=== PATIENT | male | born 1935 | race Caucasian/White ===

== ENCOUNTER 2022-07-20 21:57 | Inpatient (IN) | payer MEDICARE ==
[2022-07-21 00:23] VITALS: BMI 25.7
[2022-07-21] MEDS ORDERED: Acetaminophen 650 MG Suppository PR PRN (00:58)
[2022-07-21] MEDS ORDERED: Ondansetron PF 4 MG/2 ML Vial IVP PRN (00:58)
[2022-07-21] MEDS ORDERED: Ondansetron ODT 4 MG TAB PO PRN (00:58)
[2022-07-21] MEDS ORDERED: Furosemide 40 MG/4 ML VIAL SLOW IVP SCH (01:30)
[2022-07-21 02:09] LABS: Lactic Acid 6.1 mmol/L (0.5-2.2)
[2022-07-21 03:00] LABS: Bacteria/HPF None Seen HPF (None Seen); Bilirubin Negative (Negative); Blood, Urine Negative (Negative); CAUTI Indications for Culture Fever or rigors; Clarity Clear (Clear); Glucose, Urine (Dipstick) 30 mg/dL (Negative); Ketone, Urine Negative (Negative); Leukocyte Negative Leu/uL (Negative); Nitrite Negative (Negative); Protein, Urine (Dipstick) Negative (Neg-Trace); RBC/HPF 0-3 HPF (0-3); Specific Gravity, Urine 1.009 (1.002-1.036); Squamous Epithelial None Seen HPF (0-3); Urobilinogen Normal mg/dL (Less than 2); WBC/HPF None Seen HPF (0-3)
[2022-07-21 03:07] LABS: Urine Culture Reflex No No
[2022-07-21 05:14] LABS: Anion Gap 16 mmol/L (10-20); BUN (Urea Nitrogen) 8 mg/dL (8.4-25.7); Calc. Creatinine Clearance 68 mL/min (70-130); Calcium 8.4 mg/dL (7.8-10.44); Carbon Dioxide 19 mmol/L (23-31); Chloride 103 mmol/L (98-107); Estimated GFR 86; Glucose 202 mg/dL (83-110); Potassium 3.3 mmol/L (3.5-5.1); Sodium 135 mmol/L (136-145)
[2022-07-21 05:38] LABS: #Lymphocytes 0.1 thou/uL (1.20-3.40); #Monocytes 0.1 thou/uL (0.11-0.59); #Neutrophils 1.7 thou/uL (1.40-6.50); %Eosinophils 0.6 % (0.0-10.0); %Lymphocytes 7.3 % (21.0-51.0); %Monocytes 4.6 % (0.0-10.0); %Neutrophils 87.6 % (42.0-75.0); Hemoglobin 8.9 g/dL (14.0-18.0); Mean Corpuscular HGB CONC 33.9 g/dL (32.0-36.0); Mean Corpuscular Hemoglobin 27.4 pg (27.0-31.0); Mean Corpuscular Volume 80.7 fl (78.0-98.0); Mean Platelet Volume 11.9 fL (7.4-10.4); Platelet Count 136 10x3/uL (130-400); RBC Distribution Width 21.3 % (11.5-14.5); Red Blood Cell (RBC) Count 3.25 mill/uL (4.70-6.10); White Blood Cell (WBC) Count 1.9 10x3/uL (4.8-10.8)
[2022-07-21 05:39] LABS: Anisocytosis SLIGHT = 6-15 cells (100X) (0-5/hpf); Hypochromia SLIGHT = 6-15 cells (100X) (0-5/hpf); MDiff Complete? YES
[2022-07-21] MEDS ORDERED: Electrolyte Replacement Protocol 1 EACH FS SCH (06:30)
[2022-07-21 07:02] LABS: Magnesium 1.9 mg/dL (1.6-2.6)
[2022-07-21] MEDS ORDERED: Magnesium 2 GM/50 ML(in water) 2 GM in Premix Bag 1 BAG IVPB SCH (08:00)
[2022-07-21] MEDS: Acetaminophen 325 MG TAB PO PRN ×2 (08:15→20:33)
[2022-07-21] MEDS: Enoxaparin Sodium 40 MG/0.4 ML SYRINGE SC SCH (08:19)
[2022-07-21] MEDS ORDERED: FLU VACC QS2022-23(65YR UP)/PF 240 MCG/0.7 ML SYRINGE IM ONE (09:00)
[2022-07-21] MEDS: Potassium Chloride 20 MEQ in Premix Bag 1 BAG IVPB SCH ×2 (09:26→11:55)
[2022-07-21 10:48] LABS: Iron 20 ug/dL (65-175); Iron Binding Capacity, Total 478 mcg/dL (261-462)
[2022-07-21] MEDS ORDERED: Iopamidol-370 76% 500 ML 1 ML ONE (10:56)
[2022-07-21] MEDS: Polyethylene Glycol 3350 17 GM Packet PO SCH ×2 (18:34→20:09)
[2022-07-21] MEDS: Benzonatate 100 MG CAP PO PRN (20:33)
[2022-07-21 21:18] LABS: Lactic Acid 1.9 mmol/L (0.5-2.2)
[2022-07-22 07:43] LABS: Anion Gap 12 mmol/L (10-20); BUN (Urea Nitrogen) 9 mg/dL (8.4-25.7); Calc. Creatinine Clearance 75 mL/min (70-130); Calcium 8.2 mg/dL (7.8-10.44); Carbon Dioxide 24 mmol/L (23-31); Chloride 99 mmol/L (98-107); Estimated GFR 89; Glucose 104 mg/dL (83-110); Potassium 4.1 mmol/L (3.5-5.1); Sodium 131 mmol/L (136-145)
[2022-07-22 07:52] LABS: Hemoglobin 9.2 g/dL (14.0-18.0); Mean Corpuscular HGB CONC 31.2 g/dL (32.0-36.0); Mean Corpuscular Hemoglobin 25.1 pg (27.0-31.0); Mean Corpuscular Volume 80.6 fl (78.0-98.0); Mean Platelet Volume 7.6 fL (7.4-10.4); Platelet Count 111 10x3/uL (130-400); RBC Distribution Width 22.4 % (11.5-14.5); Red Blood Cell (RBC) Count 3.65 mill/uL (4.70-6.10)
[2022-07-22 08:41] LABS: Anisocytosis SLIGHT = 6-15 cells (100X) (0-5/hpf); Band 37 % (5-11); Hypochromia SLIGHT = 6-15 cells (100X) (0-5/hpf); Lymphocytes 1 % (21-51); MDiff Complete? YES; Monocytes 6 % (0-10); Myelocyte 2 % (0-0); Neutrophil 53 % (42-75); Nucleated RBC 1 % (0); Ovalocytes SLIGHT = 2-5 cells (100X) (0-1/hpf); Platelet Morphology Comment Appears Decreased; Polychromasia MODERATE = 3-4 cells (100X) (0-2/hpf); Reactive Lymphocytes 1 % (0-10); Tear Drops SLIGHT = 2-5 cells (100X) (0-1/hpf)
[2022-07-22] MEDS: Enoxaparin Sodium 40 MG/0.4 ML SYRINGE SC SCH (08:58)
[2022-07-22] MEDS: Acetaminophen 325 MG TAB PO PRN ×2 (09:56→19:20)
[2022-07-22] MEDS ORDERED: GoLYTELY 4,000 ml Bottle PO SCH (18:15)
[2022-07-23] MEDS: Acetaminophen 325 MG TAB PO PRN ×3 (00:06→23:17)
[2022-07-23] MEDS: Enoxaparin Sodium 40 MG/0.4 ML SYRINGE SC SCH (08:36)
[2022-07-23] MEDS: Benzonatate 100 MG CAP PO PRN ×2 (08:42→20:02)
[2022-07-23] MEDS: cefTRIAXone\\ROCEPHIN 1 GM in Sodium Chloride 0.9% 100 ML IVPB SCH (11:31)
[2022-07-23] MEDS: methylPREDNISolone Sod Succ 40 MG VIAL IVP SCH ×3 (11:31→23:11)
[2022-07-23] MEDS: Azithromycin 500 MG in Sodium Chloride 0.9% 250 ML 250 ML IVPB SCH (11:32)
[2022-07-23] MEDS ORDERED: Polyethylene Glycol 3350 17 GM Packet PO PRN (17:09)
[2022-07-23] MEDS: Mometasone 100 MCG/Formoterol 5 MCG 120 PUFF INHALER INH SCH (19:19)
[2022-07-24] MEDS: methylPREDNISolone Sod Succ 40 MG VIAL IVP SCH ×4 (05:11→23:47)
[2022-07-24] MEDS: Mometasone 100 MCG/Formoterol 5 MCG 120 PUFF INHALER INH SCH ×2 (06:55→18:49)
[2022-07-24] MEDS: Enoxaparin Sodium 40 MG/0.4 ML SYRINGE SC SCH (08:31)
[2022-07-24] MEDS: cefTRIAXone\\ROCEPHIN 1 GM in Sodium Chloride 0.9% 100 ML IVPB SCH (12:09)
[2022-07-24] MEDS: Azithromycin 500 MG in Sodium Chloride 0.9% 250 ML 250 ML IVPB SCH (12:10)
[2022-07-24] MEDS: Acetaminophen 325 MG TAB PO PRN ×2 (14:59→21:19)
[2022-07-24] MEDS ORDERED: Pantoprazole 40 MG VIAL IVP SCH (19:15)
[2022-07-24] MEDS ORDERED: GoLYTELY 4,000 ml Bottle PO SCH (19:15)
[2022-07-25] MEDS: methylPREDNISolone Sod Succ 40 MG VIAL IVP SCH ×4 (05:10→23:48)
[2022-07-25] MEDS: Enoxaparin Sodium 40 MG/0.4 ML SYRINGE SC SCH (07:11)
[2022-07-25] MEDS: Mometasone 100 MCG/Formoterol 5 MCG 120 PUFF INHALER INH SCH ×2 (07:17→18:54)
[2022-07-25] MEDS: Pantoprazole 40 MG VIAL IVP SCH (08:32)
[2022-07-25] MEDS ORDERED: PROPOFOL 200 MG/20 ML VIAL ONE (11:09)
[2022-07-25] MEDS ORDERED: Phenylephrine 10 MG/ML VIAL ONE (11:09)
[2022-07-25] MEDS ORDERED: Promethazine HCl 25 MG/ML VIAL IVPB PRN (12:28)
[2022-07-25] MEDS ORDERED: Ondansetron HCl/PF 4 MG/2 ML Vial IVP PRN (12:28)
[2022-07-25] MEDS ORDERED: Promethazine HCl 25 MG/ML VIAL IM PRN (12:28)
[2022-07-25] MEDS: Benzonatate 100 MG CAP PO PRN (13:10)
[2022-07-25] MEDS: cefTRIAXone\\ROCEPHIN 1 GM in Sodium Chloride 0.9% 100 ML IVPB SCH (13:10)
[2022-07-25] MEDS: Azithromycin 500 MG in Sodium Chloride 0.9% 250 ML 250 ML IVPB SCH (13:22)
[2022-07-25] MEDS ORDERED: Metoclopramide HCl 10 MG/2 ML VIAL IVP SCH (14:15)
[2022-07-25] MEDS: guaiFENesin/Codeine 200 mg/20 mg 10 ml Cup PO PRN (14:58)
[2022-07-26] MEDS: guaiFENesin/Codeine 200 mg/20 mg 10 ml Cup PO PRN ×3 (00:41→16:35)
[2022-07-26] MEDS: methylPREDNISolone Sod Succ 40 MG VIAL IVP SCH (06:15)
[2022-07-26] MEDS: Mometasone 100 MCG/Formoterol 5 MCG 120 PUFF INHALER INH SCH ×2 (06:21→18:38)
[2022-07-26 07:04] LABS: Anion Gap 13 mmol/L (10-20); BUN (Urea Nitrogen) 11 mg/dL (8.4-25.7); Calc. Creatinine Clearance 84 mL/min (70-130); Calcium 8.3 mg/dL (7.8-10.44); Carbon Dioxide 28 mmol/L (23-31); Chloride 98 mmol/L (98-107); Estimated GFR 92; Glucose 160 mg/dL (83-110); Potassium 2.8 mmol/L (3.5-5.1); Sodium 136 mmol/L (136-145)
[2022-07-26] MEDS: Enoxaparin Sodium 40 MG/0.4 ML SYRINGE SC SCH (08:40)
[2022-07-26] MEDS: Pantoprazole 40 MG VIAL IVP SCH (08:41)
[2022-07-26 09:22] LABS: Band 38 % (5-11); Hemoglobin 8.4 g/dL (14.0-18.0); Hypochromia SLIGHT = 6-15 cells (100X) (0-5/hpf); Lymphocytes 3 % (21-51); MDiff Complete? YES; Mean Corpuscular HGB CONC 30.6 g/dL (32.0-36.0); Mean Corpuscular Hemoglobin 24.6 pg (27.0-31.0); Mean Corpuscular Volume 80.4 fl (78.0-98.0); Mean Platelet Volume 7.8 fL (7.4-10.4); Metamyelocyte 7 % (0-0); Monocytes 4 % (0-10); Myelocyte 6 % (0-0); Neutrophil 42 % (42-75); Platelet Count 87 10x3/uL (130-400); Platelet Morphology Comment Appears Decreased; Polychromasia SLIGHT = 2-3 cells (100X) (0-2/hpf); RBC Distribution Width 22.4 % (11.5-14.5); Red Blood Cell (RBC) Count 3.39 mill/uL (4.70-6.10); Schistocytes SLIGHT = 2-5 cells (100X) (0-1/hpf); White Blood Cell (WBC) Count 10.5 10x3/uL (4.8-10.8)
[2022-07-26] MEDS: cefTRIAXone\\ROCEPHIN 1 GM in Sodium Chloride 0.9% 100 ML IVPB SCH (11:58)
[2022-07-26 12:10] LABS: Phosphorus 3.2 mg/dL (2.3-4.7)
[2022-07-26] MEDS: Potassium Bicarbonate/Cit Ac 20 MEQ TAB PO SCH ×2 (12:12→16:28)
[2022-07-26] MEDS ORDERED: Magnesium 2 GM/50 ML(in water) 2 GM in Premix Bag 1 BAG IVPB SCH (12:30)
[2022-07-26] MEDS: Cefdinir 300 MG CAP PO SCH (20:05)
[2022-07-26 20:25] LABS: Potassium 3.3 mmol/L (3.5-5.1)
[2022-07-27 07:21] LABS: Hemoglobin 9.2 g/dL (14.0-18.0); Mean Corpuscular HGB CONC 30.9 g/dL (32.0-36.0); Mean Corpuscular Hemoglobin 25.1 pg (27.0-31.0); Mean Corpuscular Volume 81.4 fl (78.0-98.0); Mean Platelet Volume 12.1 fL (7.4-10.4); Platelet Count 81 10x3/uL (130-400); RBC Distribution Width 22.7 % (11.5-14.5); Red Blood Cell (RBC) Count 3.64 mill/uL (4.70-6.10); White Blood Cell (WBC) Count 18.5 10x3/uL (4.8-10.8)
[2022-07-27 07:36] LABS: Anion Gap 11 mmol/L (10-20); BUN (Urea Nitrogen) 10 mg/dL (8.4-25.7); Calc. Creatinine Clearance 87 mL/min (70-130); Calcium 8.4 mg/dL (7.8-10.44); Carbon Dioxide 28 mmol/L (23-31); Chloride 97 mmol/L (98-107); Estimated GFR 93; Glucose 84 mg/dL (83-110); Potassium 3.2 mmol/L (3.5-5.1); Sodium 133 mmol/L (136-145)
[2022-07-27] MEDS: Mometasone 100 MCG/Formoterol 5 MCG 120 PUFF INHALER INH SCH ×2 (08:35→18:57)
[2022-07-27 09:15] LABS: Anisocytosis SLIGHT = 6-15 cells (100X) (0-5/hpf); Band 10 % (5-11); Hypochromia SLIGHT = 6-15 cells (100X) (0-5/hpf); Lymphocytes 2 % (21-51); MDiff Complete? YES; Metamyelocyte 13 % (0-0); Monocytes 2 % (0-10); Myelocyte 6 % (0-0); Neutrophil 67 % (42-75); Platelet Morphology Comment Appears Decreased; Polychromasia SLIGHT = 2-3 cells (100X) (0-2/hpf)
[2022-07-27] MEDS: Enoxaparin Sodium 40 MG/0.4 ML SYRINGE SC SCH (09:25)
[2022-07-27] MEDS: guaiFENesin/Codeine 200 mg/20 mg 10 ml Cup PO PRN ×2 (09:25→19:49)
[2022-07-27] MEDS: predniSONE 5 MG TAB PO SCH (09:25)
[2022-07-27] MEDS: Cefdinir 300 MG CAP PO SCH ×2 (09:25→19:49)
[2022-07-27] MEDS: Pantoprazole 40 MG VIAL IVP SCH (09:25)
[2022-07-27] MEDS ORDERED: Potassium Bicarbonate/Cit Ac 20 MEQ TAB PO SCH (13:00)
[2022-07-28] MEDS: Mometasone 100 MCG/Formoterol 5 MCG 120 PUFF INHALER INH SCH ×2 (07:09→19:25)
[2022-07-28 07:11] LABS: Anion Gap 11 mmol/L (10-20); BUN (Urea Nitrogen) 10 mg/dL (8.4-25.7); Calc. Creatinine Clearance 84 mL/min (70-130); Calcium 8.4 mg/dL (7.8-10.44); Carbon Dioxide 27 mmol/L (23-31); Chloride 97 mmol/L (98-107); Estimated GFR 92; Glucose 85 mg/dL (83-110); Potassium 3.8 mmol/L (3.5-5.1); Sodium 131 mmol/L (136-145)
[2022-07-28] MEDS: Enoxaparin Sodium 40 MG/0.4 ML SYRINGE SC SCH (09:35)
[2022-07-28] MEDS: predniSONE 5 MG TAB PO SCH (09:35)
[2022-07-28] MEDS: Cefdinir 300 MG CAP PO SCH ×2 (09:35→20:14)
[2022-07-28] MEDS: Benzonatate 100 MG CAP PO PRN (22:14)
[2022-07-28] MEDS: Acetaminophen 325 MG TAB PO PRN (22:14)
[2022-07-29] MEDS: Mometasone 100 MCG/Formoterol 5 MCG 120 PUFF INHALER INH SCH (06:44)
[2022-07-29 07:49] VITALS: BP 102/67; TEMP 97.9
[2022-07-29] MEDS: Cefdinir 300 MG CAP PO SCH (08:58)
[2022-07-29] MEDS: Enoxaparin Sodium 40 MG/0.4 ML SYRINGE SC SCH (08:58)
[2022-07-29] MEDS: predniSONE 5 MG TAB PO SCH (08:58)
== END 2022-07-29 14:45 | disposition home health service (06) | DRG 378 ==
LOC: T4-A 07-21 00:14
PROVIDERS: ADMIT Student in an Organized Health Care Education/Training Program; ATTEND Internal Medicine
PROC: 0W3P8ZZ Control Bleeding in Gastrointestinal Tract, Via Natural or Artificial Opening Endoscopic (ICD-10-PCS; principal; 2022-07-25)
PROC: 0DB68ZX Excision of Stomach, Via Natural or Artificial Opening Endoscopic, Diagnostic (ICD-10-PCS; 2022-07-25)
PROC: 0DBA8ZX Excision of Jejunum, Via Natural or Artificial Opening Endoscopic, Diagnostic (ICD-10-PCS; 2022-07-25)
PROC: 0DBK8ZX Excision of Ascending Colon, Via Natural or Artificial Opening Endoscopic, Diagnostic (ICD-10-PCS; 2022-07-25)
PROC: 0D5K8ZZ Destruction of Ascending Colon, Via Natural or Artificial Opening Endoscopic (ICD-10-PCS; 2022-07-25)
PROC: 0DBP8ZX Excision of Rectum, Via Natural or Artificial Opening Endoscopic, Diagnostic (ICD-10-PCS; 2022-07-25)
DX: K28.4 Chronic or unspecified gastrojejunal ulcer with hemorrhage (principal); D61.818 Other pancytopenia; E87.20 Acidosis, unspecified; N13.2 Hydronephrosis with renal and ureteral calculous obstruction; J44.1 Chronic obstructive pulmonary disease with (acute) exacerbation; D62 Acute posthemorrhagic anemia; Q43.8 Other specified congenital malformations of intestine; D50.9 Iron deficiency anemia, unspecified; D12.7 Benign neoplasm of rectosigmoid junction; D12.2 Benign neoplasm of ascending colon; K59.00 Constipation, unspecified; Z98.84 Bariatric surgery status; K57.30 Diverticulosis of large intestine without perforation or abscess without bleeding; K64.4 Residual hemorrhoidal skin tags; K64.8 Other hemorrhoids; R19.5 Other fecal abnormalities; E87.6 Hypokalemia; R33.9 Retention of urine, unspecified; Z87.891 Personal history of nicotine dependence
CPT/HCPCS: 36415; 71045; 74177; 80048; 81001; 82728; 83540; 83550; 83605; 83735; 84100; 85025; 87040; 87811; 88305; 93306; 94640; C1776; C9113; J0456; J0696; J1650; J1940; J2370; J2704; J2765; J2920; J3475; J3480; J3490; J7050; J7512; J7620; Q9967; U0003; U0005

== ENCOUNTER 2022-07-31 13:33 | Inpatient (IN) | payer MEDICARE ==
[2022-07-31] MEDS ORDERED: Guaifenesin DM 100-10/5 ML UDCUP PO PRN (18:03)
[2022-07-31 18:24] VITALS: BMI 18.3
[2022-07-31] MEDS: Sodium Chloride 0.9% 1,000 ML IV SCH (18:24)
[2022-07-31] MEDS: Mometasone 100 MCG/Formoterol 5 MCG 120 PUFF INHALER INH SCH (19:31)
[2022-07-31] MEDS: Melatonin 3 MG TAB PO PRN (20:32)
[2022-07-31] MEDS: Acetaminophen 325 MG TAB PO PRN (20:33)
[2022-08-01] MEDS: Sodium Chloride 0.9% 1,000 ML IV SCH ×3 (04:23→23:45)
[2022-08-01 06:39] LABS: Anion Gap 10 mmol/L (10-20); BUN (Urea Nitrogen) 7 mg/dL (8.4-25.7); Calc. Creatinine Clearance 60 mL/min (70-130); Calcium 7.7 mg/dL (7.8-10.44); Carbon Dioxide 21 mmol/L (23-31); Chloride 106 mmol/L (98-107); Estimated GFR 92; Glucose 111 mg/dL (83-110); Potassium 3.7 mmol/L (3.5-5.1); Sodium 133 mmol/L (136-145)
[2022-08-01 06:41] LABS: Anisocytosis MODERATE=16-30 cells (100X) (0-5/hpf); Band 6 % (5-11); Eosinophils 1 % (0-10); Hemoglobin 8.5 g/dL (14.0-18.0); Hypochromia SLIGHT = 6-15 cells (100X) (0-5/hpf); Lymphocytes 20 % (21-51); MDiff Complete? YES; Mean Corpuscular HGB CONC 30.7 g/dL (32.0-36.0); Mean Corpuscular Hemoglobin 25.4 pg (27.0-31.0); Mean Corpuscular Volume 82.6 fl (78.0-98.0); Mean Platelet Volume 9.5 fL (7.4-10.4); Metamyelocyte 4 % (0-0); Monocytes 12 % (0-10); Myelocyte 2 % (0-0); Neutrophil 55 % (42-75); Platelet Count 118 10x3/uL (130-400); Platelet Morphology Comment Appears Decreased; Polychromasia SLIGHT = 2-3 cells (100X) (0-2/hpf); Red Blood Cell (RBC) Count 3.34 mill/uL (4.70-6.10); Target Cells SLIGHT = 2-5 cells (100X) (0-1/hpf); Tear Drops SLIGHT = 2-5 cells (100X) (0-1/hpf)
[2022-08-01] MEDS: Mometasone 100 MCG/Formoterol 5 MCG 120 PUFF INHALER INH SCH ×2 (07:41→19:02)
[2022-08-01] MEDS: Folic Acid 1 MG TAB PO SCH (08:41)
[2022-08-01] MEDS: Ferrous Sulfate 325 MG TAB PO SCH (08:41)
[2022-08-01] MEDS: Multivit, Therapeutic 1 TAB PO SCH (08:41)
[2022-08-01] MEDS: Polyethylene Glycol 3350 17 GM Packet PO SCH (08:42)
[2022-08-01] MEDS ORDERED: Enoxaparin Sodium 40 MG/0.4 ML SYRINGE SC SCH (09:00)
[2022-08-01] MEDS ORDERED: FLU VACC QS2022-23(65YR UP)/PF 240 MCG/0.7 ML SYRINGE IM ONE (09:00)
[2022-08-01] MEDS: Acetaminophen 325 MG TAB PO PRN (16:26)
[2022-08-02] MEDS ORDERED: Mag-Al 1200 mg/1200 mg/30 ML UDCUP PO SCH (03:00)
[2022-08-02] MEDS: Mometasone 100 MCG/Formoterol 5 MCG 120 PUFF INHALER INH SCH ×2 (07:05→18:52)
[2022-08-02] MEDS: Folic Acid 1 MG TAB PO SCH (08:46)
[2022-08-02] MEDS: Enoxaparin Sodium 30 MG/0.3 ML SYRINGE SC SCH (08:46)
[2022-08-02] MEDS: Ferrous Sulfate 325 MG TAB PO SCH (08:46)
[2022-08-02] MEDS: Multivit, Therapeutic 1 TAB PO SCH (08:47)
[2022-08-02] MEDS: Polyethylene Glycol 3350 17 GM Packet PO SCH (08:47)
[2022-08-02] MEDS: Sodium Chloride 0.9% 1,000 ML IV SCH ×2 (08:48→20:02)
[2022-08-02] MEDS: Acetaminophen 325 MG TAB PO PRN (10:23)
[2022-08-02] MEDS ORDERED: Polyethylene Glycol 3350 17 GM Packet PO PRN (15:26)
[2022-08-03] MEDS: Sodium Chloride 0.9% 1,000 ML IV SCH (05:13)
[2022-08-03] MEDS: Mometasone 100 MCG/Formoterol 5 MCG 120 PUFF INHALER INH SCH ×2 (06:46→18:44)
[2022-08-03] MEDS: Ferrous Sulfate 325 MG TAB PO SCH (08:20)
[2022-08-03] MEDS: Multivit, Therapeutic 1 TAB PO SCH (08:20)
[2022-08-03] MEDS: Polyethylene Glycol 3350 17 GM Packet PO SCH (08:20)
[2022-08-03] MEDS: Enoxaparin Sodium 30 MG/0.3 ML SYRINGE SC SCH (08:21)
[2022-08-03] MEDS: Folic Acid 1 MG TAB PO SCH (08:21)
[2022-08-03] MEDS: Ondansetron PF 4 MG/2 ML Vial IVP PRN (22:56)
[2022-08-04] MEDS: Acetaminophen 325 MG TAB PO PRN ×2 (04:59→15:01)
[2022-08-04] MEDS: Mometasone 100 MCG/Formoterol 5 MCG 120 PUFF INHALER INH SCH ×2 (06:53→18:21)
[2022-08-04] MEDS: Ferrous Sulfate 325 MG TAB PO SCH (08:06)
[2022-08-04] MEDS: Polyethylene Glycol 3350 17 GM Packet PO SCH (08:06)
[2022-08-04] MEDS: Enoxaparin Sodium 30 MG/0.3 ML SYRINGE SC SCH (08:06)
[2022-08-04] MEDS: Multivit, Therapeutic 1 TAB PO SCH (08:06)
[2022-08-04] MEDS: Folic Acid 1 MG TAB PO SCH (08:07)
[2022-08-05] MEDS: Ondansetron PF 4 MG/2 ML Vial IVP PRN ×2 (05:12→18:42)
[2022-08-05] MEDS: Acetaminophen 325 MG TAB PO PRN ×2 (05:21→18:41)
[2022-08-05] MEDS: Mometasone 100 MCG/Formoterol 5 MCG 120 PUFF INHALER INH SCH ×2 (07:54→19:52)
[2022-08-05] MEDS: Enoxaparin Sodium 30 MG/0.3 ML SYRINGE SC SCH (08:37)
[2022-08-05] MEDS: Ferrous Sulfate 325 MG TAB PO SCH (08:37)
[2022-08-05] MEDS: Multivit, Therapeutic 1 TAB PO SCH (08:37)
[2022-08-05] MEDS: Polyethylene Glycol 3350 17 GM Packet PO SCH (08:37)
[2022-08-05] MEDS: Folic Acid 1 MG TAB PO SCH (08:37)
[2022-08-05 09:27] LABS: ALT (SGPT) 13 U/L (8-55); AST (SGOT) 18 U/L (5-34); Albumin 3.2 g/dL (3.4-4.8); Alkaline Phosphatase 77 U/L (40-110); Anion Gap 12 mmol/L (10-20); BUN (Urea Nitrogen) 6 mg/dL (8.4-25.7); Bilirubin, Total 0.8 mg/dL (0.2-1.2); Calc. Creatinine Clearance 61 mL/min (70-130); Calcium 8.3 mg/dL (7.8-10.44); Carbon Dioxide 22 mmol/L (23-31); Chloride 98 mmol/L (98-107); Estimated GFR 92; Globulin 2.6 g/dL (2.4-3.5); Glucose 118 mg/dL (83-110); Magnesium 1.9 mg/dL (1.6-2.6); Phosphorus 3.6 mg/dL (2.3-4.7); Potassium 3.8 mmol/L (3.5-5.1); Protein, Total 5.8 g/dL (5.8-8.1); Sodium 128 mmol/L (136-145)
[2022-08-05 09:36] LABS: Hemoglobin 9.1 g/dL (14.0-18.0); Mean Corpuscular HGB CONC 30.5 g/dL (32.0-36.0); Mean Corpuscular Hemoglobin 25.2 pg (27.0-31.0); Mean Corpuscular Volume 82.7 fl (78.0-98.0); Mean Platelet Volume 11.5 fL (7.4-10.4); Platelet Count 243 10x3/uL (130-400); RBC Distribution Width 25.8 % (11.5-14.5); Red Blood Cell (RBC) Count 3.59 mill/uL (4.70-6.10); White Blood Cell (WBC) Count 9.6 10x3/uL (4.8-10.8)
[2022-08-05 11:10] LABS: Anisocytosis MODERATE=16-30 cells (100X) (0-5/hpf); Band 19 % (5-11); Burr Cells SLIGHT = 2-5 cells (100X) (0-1/hpf); Eosinophils 2 % (0-10); Hypochromia SLIGHT = 6-15 cells (100X) (0-5/hpf); Lymphocytes 5 % (21-51); MDiff Complete? YES; Metamyelocyte 3 % (0-0); Monocytes 6 % (0-10); Myelocyte 6 % (0-0); Neutrophil 58 % (42-75); Polychromasia SLIGHT = 2-3 cells (100X) (0-2/hpf); Reactive Lymphocytes 1 % (0-10); Schistocytes SLIGHT = 2-5 cells (100X) (0-1/hpf)
[2022-08-05] MEDS ORDERED: Senokot S 8.6-50 MG TAB PO PRN (17:05)
[2022-08-05] MEDS: Melatonin 3 MG TAB PO PRN (20:11)
[2022-08-05] MEDS ORDERED: HYDROcodone/Acetaminophen 5/325 mg Tablet PO SCH (22:00)
[2022-08-06] MEDS: Mometasone 100 MCG/Formoterol 5 MCG 120 PUFF INHALER INH SCH ×2 (07:34→18:54)
[2022-08-06 07:45] LABS: Anion Gap 12 mmol/L (10-20); BUN (Urea Nitrogen) 7 mg/dL (8.4-25.7); Calc. Creatinine Clearance 63 mL/min (70-130); Calcium 8.2 mg/dL (7.8-10.44); Carbon Dioxide 22 mmol/L (23-31); Chloride 100 mmol/L (98-107); Estimated GFR 93; Glucose 100 mg/dL (83-110); Potassium 3.6 mmol/L (3.5-5.1); Sodium 130 mmol/L (136-145)
[2022-08-06] MEDS: Polyethylene Glycol 3350 17 GM Packet PO SCH (08:37)
[2022-08-06] MEDS: Ferrous Sulfate 325 MG TAB PO SCH (08:37)
[2022-08-06] MEDS: Multivit, Therapeutic 1 TAB PO SCH (08:37)
[2022-08-06] MEDS: Enoxaparin Sodium 30 MG/0.3 ML SYRINGE SC SCH (08:37)
[2022-08-06] MEDS: Folic Acid 1 MG TAB PO SCH (08:37)
[2022-08-06 10:00] LABS: Anisocytosis MODERATE=16-30 cells (100X) (0-5/hpf); Band 27 % (5-11); Hemoglobin 8.7 g/dL (14.0-18.0); Hypochromia MODERATE=16-30 cells (100X) (0-5/hpf); Lymphocytes 8 % (21-51); MDiff Complete? YES; Mean Corpuscular HGB CONC 31.1 g/dL (32.0-36.0); Mean Corpuscular Hemoglobin 25.4 pg (27.0-31.0); Mean Corpuscular Volume 81.7 fl (78.0-98.0); Mean Platelet Volume 11.1 fL (7.4-10.4); Monocytes 3 % (0-10); Myelocyte 4 % (0-0); Neutrophil 57 % (42-75); Platelet Count 279 10x3/uL (130-400); Platelet Morphology Comment Appears Adequate; Polychromasia SLIGHT = 2-3 cells (100X) (0-2/hpf); RBC Distribution Width 26.1 % (11.5-14.5); Reactive Lymphocytes 1 % (0-10); Red Blood Cell (RBC) Count 3.41 mill/uL (4.70-6.10); White Blood Cell (WBC) Count 9.2 10x3/uL (4.8-10.8)
[2022-08-06] MEDS ORDERED: Iopamidol-370 76% 500 ML 1 ML ONE (16:09)
[2022-08-06] MEDS: Acetaminophen 325 MG TAB PO PRN (20:31)
[2022-08-07 07:47] LABS: Anion Gap 16 mmol/L (10-20); BUN (Urea Nitrogen) 11 mg/dL (8.4-25.7); Calc. Creatinine Clearance 62 mL/min (70-130); Calcium 8.5 mg/dL (7.8-10.44); Carbon Dioxide 20 mmol/L (23-31); Chloride 101 mmol/L (98-107); Estimated GFR 93; Glucose 67 mg/dL (83-110); Potassium 3.7 mmol/L (3.5-5.1); Sodium 133 mmol/L (136-145)
[2022-08-07] MEDS: Mometasone 100 MCG/Formoterol 5 MCG 120 PUFF INHALER INH SCH ×2 (08:07→18:26)
[2022-08-07] MEDS: Folic Acid 1 MG TAB PO SCH (08:31)
[2022-08-07] MEDS: Enoxaparin Sodium 30 MG/0.3 ML SYRINGE SC SCH (08:31)
[2022-08-07] MEDS: Multivit, Therapeutic 1 TAB PO SCH (08:31)
[2022-08-07] MEDS: Ferrous Sulfate 325 MG TAB PO SCH (08:31)
[2022-08-07] MEDS: Polyethylene Glycol 3350 17 GM Packet PO SCH (08:32)
[2022-08-07] MEDS: Acetaminophen 325 MG TAB PO PRN ×3 (11:12→23:15)
[2022-08-07] MEDS: Melatonin 3 MG TAB PO PRN (20:46)
[2022-08-08] MEDS: Acetaminophen 325 MG TAB PO PRN ×2 (06:22→13:55)
[2022-08-08] MEDS: Mometasone 100 MCG/Formoterol 5 MCG 120 PUFF INHALER INH SCH ×2 (06:49→18:33)
[2022-08-08 07:58] LABS: Anion Gap 18 mmol/L (10-20); BUN (Urea Nitrogen) 9 mg/dL (8.4-25.7); Calc. Creatinine Clearance 62 mL/min (70-130); Calcium 8.1 mg/dL (7.8-10.44); Carbon Dioxide 17 mmol/L (23-31); Chloride 101 mmol/L (98-107); Estimated GFR 93; Potassium 3.8 mmol/L (3.5-5.1); Sodium 132 mmol/L (136-145)
[2022-08-08 08:02] LABS: Glucose 58 mg/dL (83-110)
[2022-08-08] MEDS: Enoxaparin Sodium 30 MG/0.3 ML SYRINGE SC SCH (08:14)
[2022-08-08] MEDS: Folic Acid 1 MG TAB PO SCH (08:14)
[2022-08-08] MEDS: Ferrous Sulfate 325 MG TAB PO SCH (08:14)
[2022-08-08] MEDS: Multivit, Therapeutic 1 TAB PO SCH (08:14)
[2022-08-08] MEDS: Polyethylene Glycol 3350 17 GM Packet PO SCH (08:15)
[2022-08-08] MEDS ORDERED: Mag-Al 1200 mg/1200 mg/30 ML UDCUP PO SCH (18:15)
[2022-08-08] MEDS: Megestrol Acetate 40 MG TAB PO SCH (20:29)
[2022-08-09] MEDS: Acetaminophen 325 MG TAB PO PRN (00:05)
[2022-08-09] MEDS: Melatonin 3 MG TAB PO PRN (00:05)
[2022-08-09] MEDS: Mometasone 100 MCG/Formoterol 5 MCG 120 PUFF INHALER INH SCH (06:46)
[2022-08-09 08:55] LABS: Hemoglobin 9.2 g/dL (14.0-18.0); Mean Corpuscular HGB CONC 32.8 g/dL (32.0-36.0); Mean Corpuscular Hemoglobin 26.2 pg (27.0-31.0); Mean Corpuscular Volume 79.9 fl (78.0-98.0); Mean Platelet Volume 11.5 fL (7.4-10.4); Platelet Count 289 10x3/uL (130-400); RBC Distribution Width 25.5 % (11.5-14.5); Red Blood Cell (RBC) Count 3.51 mill/uL (4.70-6.10); White Blood Cell (WBC) Count 9.1 10x3/uL (4.8-10.8)
[2022-08-09 09:11] VITALS: BP 91/58; TEMP 98.1
[2022-08-09 09:14] LABS: Anion Gap 12 mmol/L (10-20); BUN (Urea Nitrogen) 9 mg/dL (8.4-25.7); Calc. Creatinine Clearance 64 mL/min (70-130); Calcium 8.3 mg/dL (7.8-10.44); Carbon Dioxide 20 mmol/L (23-31); Chloride 102 mmol/L (98-107); Estimated GFR 94; Glucose 98 mg/dL (83-110); Potassium 3.4 mmol/L (3.5-5.1); Sodium 131 mmol/L (136-145)
[2022-08-09] MEDS: Folic Acid 1 MG TAB PO SCH (09:18)
[2022-08-09] MEDS: Ferrous Sulfate 325 MG TAB PO SCH (09:18)
[2022-08-09 09:19] LABS: Band 32 % (5-11); Hypochromia SLIGHT = 6-15 cells (100X) (0-5/hpf); Lymphocytes 7 % (21-51); MDiff Complete? YES; Metamyelocyte 1 % (0-0); Microcytosis SLIGHT = 6-15 cells (100X) (0-5/hpf); Monocytes 1 % (0-10); Myelocyte 4 % (0-0); Neutrophil 55 % (42-75); Platelet Morphology Comment Appears Adequate; Polychromasia SLIGHT = 2-3 cells (100X) (0-2/hpf); Schistocytes SLIGHT = 2-5 cells (100X) (0-1/hpf)
[2022-08-09] MEDS: Enoxaparin Sodium 30 MG/0.3 ML SYRINGE SC SCH (09:19)
[2022-08-09] MEDS: Polyethylene Glycol 3350 17 GM Packet PO SCH (09:19)
[2022-08-09] MEDS: Megestrol Acetate 40 MG TAB PO SCH (09:19)
[2022-08-09] MEDS: Multivit, Therapeutic 1 TAB PO SCH (09:19)
== END 2022-08-09 15:15 | disposition home or self-care (01) | DRG 948 ==
LOC: T4-B 17:11 → OBSVTOIN 08-02 15:20
PROVIDERS: ADMIT Internal Medicine; ATTEND Internal Medicine
DX: R53.81 Other malaise (principal); Z68.1 Body mass index [BMI] 19.9 or less, adult; E87.1 Hypo-osmolality and hyponatremia; R33.9 Retention of urine, unspecified; J44.9 Chronic obstructive pulmonary disease, unspecified; F03.90 Unspecified dementia, unspecified severity, without behavioral disturbance, psychotic disturbance, mood disturbance, and anxiety; R62.7 Adult failure to thrive; R11.0 Nausea; I95.9 Hypotension, unspecified; R10.9 Unspecified abdominal pain; Z98.84 Bariatric surgery status; Z79.899 Other long term (current) drug therapy
CPT/HCPCS: 36415; 36416; 74019; 74177; 80048; 80053; 82533; 83735; 84100; 84443; 85025; 94640; 96360; 96361; 96372; G0378; J1650; J2405; J7050; J7620; Q9967; S0179

== ENCOUNTER 2022-08-12 12:44 | Inpatient (IN) | payer MEDICARE ==
[2022-08-12] MEDS ORDERED: Iopamidol-370 76% 500 ML 1 ML ONE (13:09)
[2022-08-12 13:29] LABS: Bilirubin Negative (Negative); Blood, Urine 1+ (Negative); Calcium Oxalate Crystals Rare HPF (None Seen); Clarity Turbid (Clear); Glucose, Urine (Dipstick) Normal (Negative); Ketone, Urine 10 mg/dL (Negative); Leukocyte 500 Leu/uL (Negative); Nitrite Negative (Negative); Protein, Urine (Dipstick) 70 mg/dL (Neg-Trace); Specific Gravity, Urine 1.025 (1.002-1.036); Squamous Epithelial None Seen HPF (0-3); Urobilinogen Normal mg/dL (Less than 2); pH, Urine 5.5 (5.0-9.0)
[2022-08-12 13:37] LABS: Bacteria/HPF 2+ HPF (None Seen); WBC/HPF 21-50 HPF (0-3); Yeast-Budding Rare HPF (None Seen); Yeast-Hyphae 1+ HPF (None Seen)
[2022-08-12 13:44] LABS: Hemoglobin 8.8 g/dL (14.0-18.0); Mean Corpuscular HGB CONC 31.4 g/dL (32.0-36.0); Mean Corpuscular Hemoglobin 25.8 pg (27.0-31.0); Mean Corpuscular Volume 82.3 fl (78.0-98.0); Mean Platelet Volume 11.1 fL (7.4-10.4); Platelet Count 241 10x3/uL (130-400); RBC Distribution Width 25.8 % (11.5-14.5); Red Blood Cell (RBC) Count 3.41 mill/uL (4.70-6.10); White Blood Cell (WBC) Count 7.2 10x3/uL (4.8-10.8)
[2022-08-12 14:01] LABS: SARS-CoV-2 NAA Rapid Test Not Detected (NotDetected)
[2022-08-12 14:05] LABS: Anisocytosis MODERATE=16-30 cells (100X) (0-5/hpf); Band 20 % (5-11); Eosinophils 2 % (0-10); Hypochromia SLIGHT = 6-15 cells (100X) (0-5/hpf); Large Platelets SLIGHT; Lymphocytes 6 % (21-51); MDiff Complete? YES; Metamyelocyte 1 % (0-0); Monocytes 2 % (0-10); Myelocyte 4 % (0-0); Neutrophil 65 % (42-75); Ovalocytes SLIGHT = 2-5 cells (100X) (0-1/hpf); Platelet Morphology Comment Appears Adequate; Polychromasia SLIGHT = 2-3 cells (100X) (0-2/hpf); Schistocytes SLIGHT = 2-5 cells (100X) (0-1/hpf); Target Cells SLIGHT = 2-5 cells (100X) (0-1/hpf)
[2022-08-12 14:08] LABS: ALT (SGPT) 17 U/L (8-55); AST (SGOT) 20 U/L (5-34); Albumin 3.3 g/dL (3.4-4.8); Alkaline Phosphatase 94 U/L (40-110); Anion Gap 13 mmol/L (10-20); BUN (Urea Nitrogen) 9 mg/dL (8.4-25.7); Bilirubin, Total 0.7 mg/dL (0.2-1.2); Calc. Creatinine Clearance 0 mL/min (70-130); Carbon Dioxide 19 mmol/L (23-31); Chloride 104 mmol/L (98-107); Estimated GFR 92; Globulin 1.9 g/dL (2.4-3.5); Glucose 85 mg/dL (83-110); Lipase 46 U/L (8-78); Potassium 3.1 mmol/L (3.5-5.1); Protein, Total 5.2 g/dL (5.8-8.1); Sodium 133 mmol/L (136-145)
[2022-08-12] MEDS ORDERED: cefTRIAXone\\ROCEPHIN 1 GM VIAL ONE (14:30)
[2022-08-12] MEDS ORDERED: Fluconazole 100 MG TAB PO SCH (14:45)
[2022-08-12] MEDS ORDERED: Ondansetron ODT 4 MG TAB PO PRN (18:10)
[2022-08-12] MEDS: Sodium Chloride 0.9% 1,000 ML IV SCH (18:48)
[2022-08-12] MEDS: Acetaminophen 325 MG TAB PO PRN (20:38)
[2022-08-12] MEDS ORDERED: Famotidine 20 MG TAB PO SCH (22:30)
[2022-08-12] MEDS: Ondansetron PF 4 MG/2 ML Vial IVP PRN (22:53)
[2022-08-12 23:02] VITALS: BMI 17.9
[2022-08-13 06:06] LABS: Hemoglobin 8.3 g/dL (14.0-18.0); Mean Corpuscular HGB CONC 32.2 g/dL (32.0-36.0); Mean Corpuscular Hemoglobin 26.4 pg (27.0-31.0); Mean Corpuscular Volume 81.9 fl (78.0-98.0); Mean Platelet Volume 12.2 fL (7.4-10.4); Platelet Count 211 10x3/uL (130-400); RBC Distribution Width 25.6 % (11.5-14.5); Red Blood Cell (RBC) Count 3.15 mill/uL (4.70-6.10); White Blood Cell (WBC) Count 4.7 10x3/uL (4.8-10.8)
[2022-08-13 06:23] LABS: Anion Gap 11 mmol/L (10-20); BUN (Urea Nitrogen) 7 mg/dL (8.4-25.7); Calc. Creatinine Clearance 59 mL/min (70-130); Calcium 7.6 mg/dL (7.8-10.44); Carbon Dioxide 21 mmol/L (23-31); Chloride 106 mmol/L (98-107); Estimated GFR 92; Glucose 81 mg/dL (83-110); Potassium 2.8 mmol/L (3.5-5.1); Sodium 135 mmol/L (136-145)
[2022-08-13 08:07] LABS: Anisocytosis MODERATE=16-30 cells (100X) (0-5/hpf); Band 34 % (5-11); Burr Cells SLIGHT = 2-5 cells (100X) (0-1/hpf); Lymphocytes 5 % (21-51); MDiff Complete? YES; Monocytes 9 % (0-10); Myelocyte 3 % (0-0); Neutrophil 49 % (42-75); Platelet Morphology Comment Appears Adequate; Polychromasia SLIGHT = 2-3 cells (100X) (0-2/hpf); Schistocytes SLIGHT = 2-5 cells (100X) (0-1/hpf)
[2022-08-13] MEDS: Sodium Chloride 0.9% 1,000 ML IV SCH (10:45)
[2022-08-13] MEDS: Acetaminophen 325 MG TAB PO PRN (11:05)
[2022-08-13] MEDS: Potassium Chloride 20 MEQ TAB PO SCH ×2 (11:25→16:30)
[2022-08-13] MEDS ORDERED: cefTRIAXone\\ROCEPHIN 2 GM in Sodium Chloride 0.9% 100 ML IVPB SCH (15:00)
[2022-08-14] MEDS: Sodium Chloride 0.9% 1,000 ML IV SCH (08:29)
[2022-08-14 08:56] LABS: Hemoglobin 8.9 g/dL (14.0-18.0); Mean Corpuscular HGB CONC 32.1 g/dL (32.0-36.0); Mean Corpuscular Hemoglobin 26.6 pg (27.0-31.0); Mean Corpuscular Volume 82.8 fl (78.0-98.0); Mean Platelet Volume 12.2 fL (7.4-10.4); Platelet Count 205 10x3/uL (130-400); RBC Distribution Width 26.2 % (11.5-14.5); Red Blood Cell (RBC) Count 3.36 mill/uL (4.70-6.10); White Blood Cell (WBC) Count 6.1 10x3/uL (4.8-10.8)
[2022-08-14] MEDS ORDERED: Potassium Bicarbonate/Cit Ac 20 MEQ TAB PO SCH (09:00)
[2022-08-14 09:12] LABS: Anion Gap 14 mmol/L (10-20); BUN (Urea Nitrogen) 6 mg/dL (8.4-25.7); Calc. Creatinine Clearance 63 mL/min (70-130); Calcium 8.3 mg/dL (7.8-10.44); Carbon Dioxide 18 mmol/L (23-31); Chloride 105 mmol/L (98-107); Estimated GFR 94; Glucose 97 mg/dL (83-110); Potassium 3.9 mmol/L (3.5-5.1); Sodium 133 mmol/L (136-145)
[2022-08-14] MEDS: Acetaminophen 325 MG TAB PO PRN (10:07)
[2022-08-14 10:40] LABS: Band 18 % (5-11); Hypochromia SLIGHT = 6-15 cells (100X) (0-5/hpf); Lymphocytes 8 % (21-51); MDiff Complete? YES; Monocytes 3 % (0-10); Myelocyte 1 % (0-0); Neutrophil 70 % (42-75); Ovalocytes SLIGHT = 2-5 cells (100X) (0-1/hpf); Platelet Morphology Comment Appears Adequate; Polychromasia SLIGHT = 2-3 cells (100X) (0-2/hpf)
[2022-08-15] MEDS: Sodium Chloride 0.9% 1,000 ML IV SCH (04:35)
[2022-08-15 06:05] LABS: Mean Corpuscular HGB CONC 31.8 g/dL (32.0-36.0); Mean Corpuscular Hemoglobin 26.4 pg (27.0-31.0); Mean Corpuscular Volume 83.1 fl (78.0-98.0); Mean Platelet Volume 11.6 fL (7.4-10.4); Platelet Count 197 10x3/uL (130-400); RBC Distribution Width 25.7 % (11.5-14.5); Red Blood Cell (RBC) Count 3.41 mill/uL (4.70-6.10); White Blood Cell (WBC) Count 6.2 10x3/uL (4.8-10.8)
[2022-08-15 06:19] LABS: Anion Gap 11 mmol/L (10-20); BUN (Urea Nitrogen) 6 mg/dL (8.4-25.7); Calc. Creatinine Clearance 59 mL/min (70-130); Calcium 8.6 mg/dL (7.8-10.44); Carbon Dioxide 22 mmol/L (23-31); Chloride 101 mmol/L (98-107); Estimated GFR 92; Glucose 101 mg/dL (83-110); Potassium 3.8 mmol/L (3.5-5.1); Sodium 130 mmol/L (136-145)
[2022-08-15 06:54] LABS: Anisocytosis MODERATE=16-30 cells (100X) (0-5/hpf); Band 13 % (5-11); Crenated RBC SLIGHT = 1-5 cells (100X) (None Seen); Hypochromia SLIGHT = 6-15 cells (100X) (0-5/hpf); Lymphocytes 4 % (21-51); MDiff Complete? YES; Metamyelocyte 4 % (0-0); Monocytes 1 % (0-10); Myelocyte 6 % (0-0); Neutrophil 71 % (42-75); Platelet Morphology Comment Appears Adequate
[2022-08-15] MEDS: Fluconazole 100 MG TAB PO SCH (09:57)
[2022-08-15] MEDS ORDERED: Polyethylene Glycol 3350 17 GM Packet PO PRN (10:08)
[2022-08-15] MEDS: Acetaminophen 325 MG TAB PO PRN (20:04)
[2022-08-15] MEDS: Ondansetron PF 4 MG/2 ML Vial IVP PRN (20:04)
[2022-08-16] MEDS: Sodium Chloride 0.9% 1,000 ML IV SCH (05:35)
[2022-08-16] MEDS: Acetaminophen 325 MG TAB PO PRN ×2 (05:44→20:30)
[2022-08-16 06:43] LABS: Hemoglobin 9.5 g/dL (14.0-18.0); Mean Corpuscular HGB CONC 31.9 g/dL (32.0-36.0); Mean Corpuscular Hemoglobin 26.5 pg (27.0-31.0); Mean Corpuscular Volume 83.1 fl (78.0-98.0); Mean Platelet Volume 11.9 fL (7.4-10.4); Platelet Count 212 10x3/uL (130-400); RBC Distribution Width 25.8 % (11.5-14.5); Red Blood Cell (RBC) Count 3.57 mill/uL (4.70-6.10); White Blood Cell (WBC) Count 6.6 10x3/uL (4.8-10.8)
[2022-08-16 07:07] LABS: Anion Gap 13 mmol/L (10-20); BUN (Urea Nitrogen) 10 mg/dL (8.4-25.7); Calc. Creatinine Clearance 58 mL/min (70-130); Calcium 9.2 mg/dL (7.8-10.44); Carbon Dioxide 23 mmol/L (23-31); Chloride 102 mmol/L (98-107); Estimated GFR 91; Glucose 103 mg/dL (83-110); Sodium 134 mmol/L (136-145)
[2022-08-16 08:43] LABS: Anisocytosis MODERATE=16-30 cells (100X) (0-5/hpf); Band 16 % (5-11); Eosinophils 1 % (0-10); Lymphocytes 13 % (21-51); MDiff Complete? YES; Monocytes 2 % (0-10); Myelocyte 3 % (0-0); Neutrophil 64 % (42-75); Platelet Morphology Comment Appears Adequate; Polychromasia MODERATE = 3-4 cells (100X) (0-2/hpf); Reactive Lymphocytes 1 % (0-10); Schistocytes SLIGHT = 2-5 cells (100X) (0-1/hpf); Tear Drops SLIGHT = 2-5 cells (100X) (0-1/hpf)
[2022-08-16] MEDS: Polyethylene Glycol 3350 17 GM Packet PO SCH (09:15)
[2022-08-16] MEDS: Fluconazole 100 MG TAB PO SCH (09:15)
[2022-08-17] MEDS: Sodium Chloride 0.9% 1,000 ML IV SCH ×2 (03:32→20:02)
[2022-08-17] MEDS: Acetaminophen 325 MG TAB PO PRN ×2 (06:10→19:59)
[2022-08-17 06:20] LABS: Anion Gap 12 mmol/L (10-20); BUN (Urea Nitrogen) 15 mg/dL (8.4-25.7); Calc. Creatinine Clearance 63 mL/min (70-130); Calcium 8.6 mg/dL (7.8-10.44); Carbon Dioxide 24 mmol/L (23-31); Chloride 101 mmol/L (98-107); Estimated GFR 94; Glucose 104 mg/dL (83-110); Potassium 3.8 mmol/L (3.5-5.1); Sodium 133 mmol/L (136-145)
[2022-08-17 07:38] LABS: Anisocytosis MODERATE=16-30 cells (100X) (0-5/hpf); Band 31 % (5-11); Eosinophils 1 % (0-10); Hemoglobin 8.5 g/dL (14.0-18.0); Lymphocytes 11 % (21-51); MDiff Complete? YES; Mean Corpuscular HGB CONC 32.3 g/dL (32.0-36.0); Mean Corpuscular Hemoglobin 26.6 pg (27.0-31.0); Mean Corpuscular Volume 82.4 fl (78.0-98.0); Mean Platelet Volume 7.4 fL (7.4-10.4); Neutrophil 57 % (42-75); Platelet Count 184 10x3/uL (130-400); RBC Distribution Width 26.1 % (11.5-14.5); Red Blood Cell (RBC) Count 3.18 mill/uL (4.70-6.10); White Blood Cell (WBC) Count 6.2 10x3/uL (4.8-10.8)
[2022-08-17] MEDS: Fluconazole 100 MG TAB PO SCH (09:59)
[2022-08-17] MEDS: Polyethylene Glycol 3350 17 GM Packet PO SCH (09:59)
[2022-08-18 06:23] LABS: Hemoglobin 8.6 g/dL (14.0-18.0); Mean Corpuscular HGB CONC 31.5 g/dL (32.0-36.0); Mean Corpuscular Hemoglobin 26.2 pg (27.0-31.0); Mean Corpuscular Volume 83.2 fl (78.0-98.0); Mean Platelet Volume 7.1 fL (7.4-10.4); Platelet Count 179 10x3/uL (130-400); RBC Distribution Width 26.4 % (11.5-14.5); Red Blood Cell (RBC) Count 3.29 mill/uL (4.70-6.10); White Blood Cell (WBC) Count 6.6 10x3/uL (4.8-10.8)
[2022-08-18 06:35] LABS: Anion Gap 12 mmol/L (10-20); BUN (Urea Nitrogen) 11 mg/dL (8.4-25.7); Calc. Creatinine Clearance 64 mL/min (70-130); Calcium 8.2 mg/dL (7.8-10.44); Carbon Dioxide 22 mmol/L (23-31); Chloride 101 mmol/L (98-107); Estimated GFR 94; Glucose 102 mg/dL (83-110); Potassium 3.7 mmol/L (3.5-5.1); Sodium 131 mmol/L (136-145)
[2022-08-18 06:54] LABS: Band 15 % (5-11); Lymphocytes 4 % (21-51); MDiff Complete? YES; Metamyelocyte 1 % (0-0); Monocytes 5 % (0-10); Myelocyte 3 % (0-0); Neutrophil 72 % (42-75)
[2022-08-18] MEDS: Fluconazole 100 MG TAB PO SCH (09:37)
[2022-08-18] MEDS: Polyethylene Glycol 3350 17 GM Packet PO SCH (09:37)
[2022-08-18] MEDS: Acetaminophen 325 MG TAB PO PRN (19:48)
[2022-08-18] MEDS: Sodium Chloride 0.9% 1,000 ML IV SCH (19:48)
[2022-08-19 06:23] LABS: Anion Gap 10 mmol/L (10-20); BUN (Urea Nitrogen) 10 mg/dL (8.4-25.7); Calc. Creatinine Clearance 60 mL/min (70-130); Calcium 8.3 mg/dL (7.8-10.44); Carbon Dioxide 22 mmol/L (23-31); Chloride 102 mmol/L (98-107); Estimated GFR 93; Glucose 102 mg/dL (83-110); Potassium 3.8 mmol/L (3.5-5.1); Sodium 130 mmol/L (136-145)
[2022-08-19 07:12] LABS: Anisocytosis MODERATE=16-30 cells (100X) (0-5/hpf); Band 31 % (5-11); Eosinophils 1 % (0-10); Hemoglobin 8.8 g/dL (14.0-18.0); Lymphocytes 15 % (21-51); MDiff Complete? YES; Mean Corpuscular HGB CONC 31.6 g/dL (32.0-36.0); Mean Corpuscular Hemoglobin 26.3 pg (27.0-31.0); Mean Corpuscular Volume 83.3 fl (78.0-98.0); Mean Platelet Volume 7.3 fL (7.4-10.4); Monocytes 5 % (0-10); Neutrophil 47 % (42-75); Platelet Count 179 10x3/uL (130-400); Red Blood Cell (RBC) Count 3.36 mill/uL (4.70-6.10); White Blood Cell (WBC) Count 5.4 10x3/uL (4.8-10.8)
[2022-08-19] MEDS: Polyethylene Glycol 3350 17 GM Packet PO SCH (09:31)
[2022-08-19] MEDS: Fluconazole 100 MG TAB PO SCH (09:32)
[2022-08-19] MEDS: Acetaminophen 325 MG TAB PO PRN (12:02)
[2022-08-19] MEDS: Ipratropium/Albuterol 3 ML NEB NEB SCH (18:44)
[2022-08-19] MEDS: Mometasone 100 MCG/Formoterol 5 MCG 120 PUFF INHALER INH SCH (18:46)
[2022-08-19] MEDS: Megestrol Acetate 40 MG TAB PO SCH (21:28)
[2022-08-19] MEDS: Senokot S 8.6-50 MG TAB PO SCH (21:28)
[2022-08-19] MEDS: Sodium Chloride 0.9% 1,000 ML IV SCH (21:28)
[2022-08-20] MEDS: Ipratropium/Albuterol 3 ML NEB NEB SCH ×5 (00:11→23:21)
[2022-08-20] MEDS: Mometasone 100 MCG/Formoterol 5 MCG 120 PUFF INHALER INH SCH ×2 (06:48→18:57)
[2022-08-20 06:53] LABS: Hemoglobin 9.2 g/dL (14.0-18.0); Mean Corpuscular Hemoglobin 27.5 pg (27.0-31.0); Mean Corpuscular Volume 83.5 fl (78.0-98.0); Mean Platelet Volume 9.2 fL (7.4-10.4); Platelet Count 158 10x3/uL (130-400); RBC Distribution Width 27.6 % (11.5-14.5); Red Blood Cell (RBC) Count 3.34 mill/uL (4.70-6.10)
[2022-08-20 07:14] LABS: Anion Gap 13 mmol/L (10-20); BUN (Urea Nitrogen) 9 mg/dL (8.4-25.7); Calc. Creatinine Clearance 63 mL/min (70-130); Calcium 8.3 mg/dL (7.8-10.44); Carbon Dioxide 20 mmol/L (23-31); Chloride 103 mmol/L (98-107); Estimated GFR 94; Glucose 122 mg/dL (83-110); Potassium 3.5 mmol/L (3.5-5.1); Sodium 132 mmol/L (136-145)
[2022-08-20] MEDS: Polyethylene Glycol 3350 17 GM Packet PO SCH (09:50)
[2022-08-20] MEDS: Multivit, Therapeutic 1 TAB PO SCH (09:50)
[2022-08-20] MEDS: Ferrous Sulfate 325 MG TAB PO SCH (09:50)
[2022-08-20] MEDS: Fluconazole 100 MG TAB PO SCH (09:51)
[2022-08-20] MEDS: Folic Acid 1 MG TAB PO SCH (09:51)
[2022-08-20] MEDS: Megestrol Acetate 40 MG TAB PO SCH ×2 (09:51→20:30)
[2022-08-20] MEDS: Senokot S 8.6-50 MG TAB PO SCH ×2 (09:51→20:30)
[2022-08-20 10:54] LABS: Band 27 % (5-11); Hypochromia SLIGHT = 6-15 cells (100X) (0-5/hpf); Lymphocytes 13 % (21-51); MDiff Complete? YES; Metamyelocyte 1 % (0-0); Monocytes 4 % (0-10); Myelocyte 1 % (0-0); Neutrophil 54 % (42-75); Ovalocytes SLIGHT = 2-5 cells (100X) (0-1/hpf); Platelet Morphology Comment Appears Adequate; Polychromasia SLIGHT = 2-3 cells (100X) (0-2/hpf)
[2022-08-20] MEDS: Sodium Chloride 0.9% 1,000 ML IV SCH (16:24)
[2022-08-21] MEDS: Sodium Chloride 0.9% 1,000 ML IV SCH (02:17)
[2022-08-21] MEDS: Ipratropium/Albuterol 3 ML NEB NEB SCH ×4 (06:37→23:09)
[2022-08-21] MEDS: Mometasone 100 MCG/Formoterol 5 MCG 120 PUFF INHALER INH SCH ×2 (06:37→18:09)
[2022-08-21 06:43] LABS: Hemoglobin 9.2 g/dL (14.0-18.0); Mean Corpuscular HGB CONC 32.2 g/dL (32.0-36.0); Mean Corpuscular Hemoglobin 26.7 pg (27.0-31.0); Mean Platelet Volume 7.6 fL (7.4-10.4); Platelet Count 153 10x3/uL (130-400); RBC Distribution Width 26.8 % (11.5-14.5); Red Blood Cell (RBC) Count 3.44 mill/uL (4.70-6.10); White Blood Cell (WBC) Count 5.5 10x3/uL (4.8-10.8)
[2022-08-21 07:00] LABS: Anion Gap 12 mmol/L (10-20); BUN (Urea Nitrogen) 9 mg/dL (8.4-25.7); Calc. Creatinine Clearance 58 mL/min (70-130); Calcium 8.4 mg/dL (7.8-10.44); Carbon Dioxide 21 mmol/L (23-31); Chloride 104 mmol/L (98-107); Estimated GFR 92; Glucose 91 mg/dL (83-110); Potassium 3.7 mmol/L (3.5-5.1); Sodium 133 mmol/L (136-145)
[2022-08-21 08:07] LABS: Anisocytosis MODERATE=16-30 cells (100X) (0-5/hpf); Band 23 % (5-11); Hypochromia SLIGHT = 6-15 cells (100X) (0-5/hpf); Lymphocytes 9 % (21-51); MDiff Complete? YES; Metamyelocyte 1 % (0-0); Monocytes 8 % (0-10); Myelocyte 1 % (0-0); Neutrophil 58 % (42-75); Polychromasia SLIGHT = 2-3 cells (100X) (0-2/hpf); Schistocytes SLIGHT = 2-5 cells (100X) (0-1/hpf)
[2022-08-21] MEDS: Megestrol Acetate 40 MG TAB PO SCH ×2 (08:35→20:37)
[2022-08-21] MEDS: Fluconazole 100 MG TAB PO SCH (08:35)
[2022-08-21] MEDS: Multivit, Therapeutic 1 TAB PO SCH (08:35)
[2022-08-21] MEDS: Folic Acid 1 MG TAB PO SCH (08:35)
[2022-08-21] MEDS: Ferrous Sulfate 325 MG TAB PO SCH (08:35)
[2022-08-21] MEDS: Senokot S 8.6-50 MG TAB PO SCH ×2 (08:35→20:37)
[2022-08-21] MEDS: Polyethylene Glycol 3350 17 GM Packet PO SCH (08:36)
[2022-08-21] MEDS: Acetaminophen 325 MG TAB PO PRN (20:37)
[2022-08-22] MEDS: Sodium Chloride 0.9% 1,000 ML IV SCH ×2 (00:28→19:18)
[2022-08-22 06:39] LABS: Mean Corpuscular HGB CONC 33.3 g/dL (32.0-36.0); Mean Corpuscular Hemoglobin 27.8 pg (27.0-31.0); Mean Corpuscular Volume 83.5 fl (78.0-98.0); Mean Platelet Volume 7.6 fL (7.4-10.4); Platelet Count 140 10x3/uL (130-400); RBC Distribution Width 26.5 % (11.5-14.5); Red Blood Cell (RBC) Count 3.25 mill/uL (4.70-6.10); White Blood Cell (WBC) Count 4.9 10x3/uL (4.8-10.8)
[2022-08-22] MEDS: Ipratropium/Albuterol 3 ML NEB NEB SCH ×2 (06:40→14:00)
[2022-08-22] MEDS: Mometasone 100 MCG/Formoterol 5 MCG 120 PUFF INHALER INH SCH ×2 (06:40→19:00)
[2022-08-22 06:43] LABS: Anion Gap 14 mmol/L (10-20); BUN (Urea Nitrogen) 11 mg/dL (8.4-25.7); Calc. Creatinine Clearance 62 mL/min (70-130); Calcium 8.6 mg/dL (7.8-10.44); Carbon Dioxide 20 mmol/L (23-31); Chloride 104 mmol/L (98-107); Estimated GFR 93; Glucose 91 mg/dL (83-110); Potassium 3.7 mmol/L (3.5-5.1); Sodium 134 mmol/L (136-145)
[2022-08-22] MEDS: Multivit, Therapeutic 1 TAB PO SCH (10:49)
[2022-08-22] MEDS: Senokot S 8.6-50 MG TAB PO SCH ×2 (10:49→20:59)
[2022-08-22] MEDS: Megestrol Acetate 40 MG TAB PO SCH ×2 (10:49→20:58)
[2022-08-22] MEDS: Folic Acid 1 MG TAB PO SCH (10:49)
[2022-08-22] MEDS: Ferrous Sulfate 325 MG TAB PO SCH (10:50)
[2022-08-22] MEDS: Fluconazole 100 MG TAB PO SCH (10:50)
[2022-08-22] MEDS: Polyethylene Glycol 3350 17 GM Packet PO SCH (10:50)
[2022-08-22 11:03] LABS: Band 23 % (5-11); Eosinophils 6 % (0-10); Lymphocytes 7 % (21-51); MDiff Complete? YES; Monocytes 11 % (0-10); Myelocyte 3 % (0-0); Neutrophil 50 % (42-75); Platelet Morphology Comment Appears Adequate; Polychromasia SLIGHT = 2-3 cells (100X) (0-2/hpf); Schistocytes SLIGHT = 2-5 cells (100X) (0-1/hpf)
[2022-08-22] MEDS ORDERED: Ipratropium/Albuterol 3 ML NEB NEB PRN (13:39)
[2022-08-23 05:52] LABS: Hemoglobin 9.3 g/dL (14.0-18.0); Mean Corpuscular HGB CONC 31.8 g/dL (32.0-36.0); Mean Corpuscular Hemoglobin 26.6 pg (27.0-31.0); Mean Corpuscular Volume 83.6 fl (78.0-98.0); Mean Platelet Volume 7.5 fL (7.4-10.4); Platelet Count 144 10x3/uL (130-400); RBC Distribution Width 27.3 % (11.5-14.5); White Blood Cell (WBC) Count 6.7 10x3/uL (4.8-10.8)
[2022-08-23 06:08] LABS: Anion Gap 11 mmol/L (10-20); BUN (Urea Nitrogen) 13 mg/dL (8.4-25.7); Calc. Creatinine Clearance 58 mL/min (70-130); Calcium 8.9 mg/dL (7.8-10.44); Carbon Dioxide 19 mmol/L (23-31); Chloride 104 mmol/L (98-107); Estimated GFR 91; Glucose 88 mg/dL (83-110); Potassium 4.2 mmol/L (3.5-5.1)
[2022-08-23 06:14] LABS: Band 24 % (5-11); Eosinophils 2 % (0-10); Hypochromia SLIGHT = 6-15 cells (100X) (0-5/hpf); Lymphocytes 5 % (21-51); MDiff Complete? YES; Monocytes 3 % (0-10); Neutrophil 66 % (42-75); Platelet Morphology Comment Appears Adequate
[2022-08-23 06:33] LABS: Sodium 130 mmol/L (136-145)
[2022-08-23] MEDS: Mometasone 100 MCG/Formoterol 5 MCG 120 PUFF INHALER INH SCH ×2 (07:55→18:59)
[2022-08-23] MEDS: Senokot S 8.6-50 MG TAB PO SCH ×2 (08:26→21:06)
[2022-08-23] MEDS: Ferrous Sulfate 325 MG TAB PO SCH (08:26)
[2022-08-23] MEDS: Folic Acid 1 MG TAB PO SCH (08:26)
[2022-08-23] MEDS: Multivit, Therapeutic 1 TAB PO SCH (08:26)
[2022-08-23] MEDS: Fluconazole 100 MG TAB PO SCH (08:26)
[2022-08-23] MEDS: Megestrol Acetate 40 MG TAB PO SCH ×2 (08:26→21:06)
[2022-08-23] MEDS: Polyethylene Glycol 3350 17 GM Packet PO SCH (08:27)
[2022-08-23] MEDS: Sodium Chloride 0.9% 1,000 ML IV SCH (14:17)
[2022-08-24 07:02] LABS: Hemoglobin 9.1 g/dL (14.0-18.0); Mean Corpuscular Hemoglobin 27.5 pg (27.0-31.0); Mean Corpuscular Volume 83.2 fl (78.0-98.0); Mean Platelet Volume 8.4 fL (7.4-10.4); Platelet Count 130 10x3/uL (130-400); RBC Distribution Width 27.2 % (11.5-14.5); Red Blood Cell (RBC) Count 3.32 mill/uL (4.70-6.10); White Blood Cell (WBC) Count 5.1 10x3/uL (4.8-10.8)
[2022-08-24 07:13] LABS: Anion Gap 12 mmol/L (10-20); BUN (Urea Nitrogen) 12 mg/dL (8.4-25.7); Calc. Creatinine Clearance 58 mL/min (70-130); Calcium 8.3 mg/dL (7.8-10.44); Carbon Dioxide 19 mmol/L (23-31); Chloride 104 mmol/L (98-107); Estimated GFR 91; Glucose 82 mg/dL (83-110); Potassium 3.7 mmol/L (3.5-5.1); Sodium 131 mmol/L (136-145)
[2022-08-24] MEDS: Mometasone 100 MCG/Formoterol 5 MCG 120 PUFF INHALER INH SCH ×2 (07:35→19:45)
[2022-08-24 07:54] LABS: Anisocytosis MODERATE=16-30 cells (100X) (0-5/hpf); Band 21 % (5-11); Eosinophils 4 % (0-10); Lymphocytes 5 % (21-51); MDiff Complete? YES; Microcytosis SLIGHT = 6-15 cells (100X) (0-5/hpf); Monocytes 6 % (0-10); Myelocyte 2 % (0-0); Neutrophil 62 % (42-75); Schistocytes SLIGHT = 2-5 cells (100X) (0-1/hpf)
[2022-08-24] MEDS: Folic Acid 1 MG TAB PO SCH (09:30)
[2022-08-24] MEDS: Fluconazole 100 MG TAB PO SCH (09:30)
[2022-08-24] MEDS: Ferrous Sulfate 325 MG TAB PO SCH (09:30)
[2022-08-24] MEDS: Senokot S 8.6-50 MG TAB PO SCH ×2 (09:31→21:04)
[2022-08-24] MEDS: Multivit, Therapeutic 1 TAB PO SCH (09:31)
[2022-08-24] MEDS: Polyethylene Glycol 3350 17 GM Packet PO SCH (09:31)
[2022-08-24] MEDS: Megestrol Acetate 40 MG TAB PO SCH ×2 (09:31→21:04)
[2022-08-24] MEDS: Sodium Chloride 0.9% 1,000 ML IV SCH (10:47)
[2022-08-25] MEDS: Sodium Chloride 0.9% 1,000 ML IV SCH (04:15)
[2022-08-25] MEDS: Mometasone 100 MCG/Formoterol 5 MCG 120 PUFF INHALER INH SCH ×2 (08:05→18:34)
[2022-08-25] MEDS: Megestrol Acetate 40 MG TAB PO SCH ×2 (08:13→20:49)
[2022-08-25] MEDS: Fluconazole 100 MG TAB PO SCH (08:14)
[2022-08-25] MEDS: Ferrous Sulfate 325 MG TAB PO SCH (08:14)
[2022-08-25] MEDS: Acetaminophen 325 MG TAB PO PRN ×2 (08:14→15:56)
[2022-08-25] MEDS: Folic Acid 1 MG TAB PO SCH (08:14)
[2022-08-25] MEDS: Multivit, Therapeutic 1 TAB PO SCH (08:14)
[2022-08-25] MEDS: Polyethylene Glycol 3350 17 GM Packet PO SCH (08:16)
[2022-08-25] MEDS: Senokot S 8.6-50 MG TAB PO SCH ×2 (08:17→20:49)
[2022-08-26] MEDS: Sodium Chloride 0.9% 1,000 ML IV SCH (04:09)
[2022-08-26] MEDS: Mometasone 100 MCG/Formoterol 5 MCG 120 PUFF INHALER INH SCH ×2 (08:36→19:07)
[2022-08-26] MEDS: Fluconazole 100 MG TAB PO SCH (09:10)
[2022-08-26] MEDS: Senokot S 8.6-50 MG TAB PO SCH ×2 (09:10→20:27)
[2022-08-26] MEDS: Megestrol Acetate 40 MG TAB PO SCH ×2 (09:10→20:27)
[2022-08-26] MEDS: Folic Acid 1 MG TAB PO SCH (09:10)
[2022-08-26] MEDS: Polyethylene Glycol 3350 17 GM Packet PO SCH (09:10)
[2022-08-26] MEDS: Ferrous Sulfate 325 MG TAB PO SCH (09:10)
[2022-08-26] MEDS: Multivit, Therapeutic 1 TAB PO SCH (09:10)
[2022-08-27] MEDS: Sodium Chloride 0.9% 1,000 ML IV SCH ×2 (03:45→18:18)
[2022-08-27] MEDS: Mometasone 100 MCG/Formoterol 5 MCG 120 PUFF INHALER INH SCH ×2 (07:11→18:36)
[2022-08-27] MEDS: Ferrous Sulfate 325 MG TAB PO SCH (09:39)
[2022-08-27] MEDS: Senokot S 8.6-50 MG TAB PO SCH ×2 (09:39→20:48)
[2022-08-27] MEDS: Fluconazole 100 MG TAB PO SCH (09:39)
[2022-08-27] MEDS: Multivit, Therapeutic 1 TAB PO SCH (09:39)
[2022-08-27] MEDS: Folic Acid 1 MG TAB PO SCH (09:39)
[2022-08-27] MEDS: Megestrol Acetate 40 MG TAB PO SCH ×2 (09:40→20:48)
[2022-08-27] MEDS: Polyethylene Glycol 3350 17 GM Packet PO SCH (09:41)
[2022-08-28] MEDS: Ferrous Sulfate 325 MG TAB PO SCH (09:39)
[2022-08-28] MEDS: Fluconazole 100 MG TAB PO SCH (09:40)
[2022-08-28] MEDS: Folic Acid 1 MG TAB PO SCH (09:40)
[2022-08-28] MEDS: Megestrol Acetate 40 MG TAB PO SCH (09:41)
[2022-08-28] MEDS: Multivit, Therapeutic 1 TAB PO SCH (09:41)
[2022-08-28] MEDS: Polyethylene Glycol 3350 17 GM Packet PO SCH (09:42)
[2022-08-28] MEDS: Senokot S 8.6-50 MG TAB PO SCH (09:42)
[2022-08-28] MEDS: Acetaminophen 325 MG TAB PO PRN (09:44)
[2022-08-28] MEDS: Mometasone 100 MCG/Formoterol 5 MCG 120 PUFF INHALER INH SCH (10:42)
[2022-08-28] MEDS: Sodium Chloride 0.9% 1,000 ML IV SCH (12:31)
[2022-08-28 12:37] VITALS: TEMP 97.8
[2022-08-28 17:39] VITALS: BP 97/64
== END 2022-08-28 17:15 | DRG 698 ==
LOC: ERS 12:44 → ERHOLD 15:33 → SURG A 18:10 → OBSVTOIN 08-13 10:02
PROVIDERS: ADMIT Family Medicine; ATTEND Internal Medicine
DX: T83.511A Infection and inflammatory reaction due to indwelling urethral catheter, initial encounter (principal); E43 Unspecified severe protein-calorie malnutrition; G93.41 Metabolic encephalopathy; Z68.1 Body mass index [BMI] 19.9 or less, adult; N39.0 Urinary tract infection, site not specified; Z66 Do not resuscitate; Y84.6 Urinary catheterization as the cause of abnormal reaction of the patient, or of later complication, without mention of misadventure at the time of the procedure; Z20.822 Contact with and (suspected) exposure to COVID-19; J44.9 Chronic obstructive pulmonary disease, unspecified; R62.7 Adult failure to thrive; E87.6 Hypokalemia; Z98.84 Bariatric surgery status; Z79.899 Other long term (current) drug therapy
CPT/HCPCS: 36415; 74177; 76770; 80048; 80053; 81003; 81015; 83690; 84484; 85025; 87040; 87086; 87811; 93005; 94640; 94664; 96374; 96375; G0378; J0696; J2405; J3490; J7050; J7620; Q0162; Q9967; S0179